=== PATIENT | female | born 1995 | race Caucasian/White ===

== ENCOUNTER 2018-06-28 18:02 | Emergency (ER) | payer BC ==
[2018-06-28 18:21] VITALS: BP 109/63
--- NOTE | 2018-06-28 18:26 | UC ---
UC General HPI - HPI Summary HPI Summary: feeling very stressed at her job--ran out of Zoloft 4 days ago and cannot get back to doctor right now---denies HI/SI - History of Current Complaint Chief Complaint: UCMedRefill Stated Complaint: MEDICINE REFILL Time Seen by Provider: 06/28/18 18:14 Hx Obtained From: Patient Hx Last Menstrual Period: irreg. - PCOS Onset/Duration: Sudden Onset, Lasting Days - 4, Still Present Timing: Constant Pain Intensity: 1 - Allergy/Home Medications Allergies/Adverse Reactions: Allergies Allergy/AdvReac Type Severity Reaction Status Date / Time No Known Allergies Allergy Verified 06/28/18 18:12 Home Medications: Home Medications Fexofenadine/Pseudoephedrine [Sofi-D 24 Hour Tablet] 1 each PO DAILY [History Confirmed 06/28/18] Sertraline* [Zoloft*] 100 mg PO DAILY 06/28/18 [History Confirmed 06/28/18] PMH/Surg Hx/FS Hx/Imm Hx Previously Healthy: No - pcos Psychological History: Depression - Surgical History Surgical History: None - Family History Known Family History: Positive: None - Social History Occupation: Employed Full-time, Student Lives: With Family Alcohol Use: Rare Substance Use Type: None Smoking Status (MU): Never Smoked Tobacco Review of Systems Constitutional: Negative Skin: Negative Eyes: Negative ENT: Negative Respiratory: Negative Cardiovascular: Negative Gastrointestinal: Negative Genitourinary: Negative Motor: Negative Neurovascular: Negative Musculoskeletal: Negative Neurological: Negative Psychological: Other - teary/stress but not homicidial or suicidal Is Patient Immunocompromised?: No All Other Systems Reviewed And Are Negative: Yes Physical Exam Triage Information Reviewed: Yes Appearance: Well-Appearing, No Pain Distress, Well-Nourished Vital Signs: Initial Vital Signs Temp 98.4 F 06/28/18 18:13 Pulse 89 06/28/18 18:13 Resp 18 06/28/18 18:13 BP 109/63 06/28/18 18:13 Pulse Ox 98 06/28/18 18:13 Vital Signs Reviewed: Yes Eye Exam: Normal Eyes: Positive: Conjunctiva Clear ENT Exam: Normal ENT: Positive: Normal ENT inspection, Hearing grossly normal. Negative: Trismus , Muffled voice, Hoarse voice Dental Exam: Normal Neck exam: Normal Neck: Positive: Supple, Nontender Respiratory Exam: Normal Respiratory: Positive: Chest non-tender, No respiratory distress, No accessory muscle use Cardiovascular Exam: Normal Cardiovascular: Positive: RRR, Pulses Normal, Brisk Capillary Refill Musculoskeletal Exam: Normal Musculoskeletal: Positive: Strength Intact, ROM Intact Neurological Exam: Normal Neurological: Positive: Alert, Muscle Tone Normal Psychological Exam: Normal Skin Exam: Normal Course/Dx - Course Course Of Treatment: refill zoloft, referals to community services. - Differential Dx - Multi-Symptom Provider Diagnoses: depression in remission Discharge - Sign-Out/Discharge Documenting (check all that apply): Patient Departure All imaging exams completed and their final reports reviewed: No Studies - Discharge Plan Condition: Stable Disposition: HOME Prescriptions: Sertraline* [Zoloft*] 150 mg PO DAILY #75 tab Sertraline* [Zoloft*] 150 mg PO DAILY 30 Days #90 tab Patient Education Materials: Depression (DC) Referrals: [facility] [Outside] [facility] [[facility]] [facility] [Outside] - Billing Disposition and Condition Condition: STABLE Disposition: Home
== END 2018-06-28 18:40 | disposition home or self-care (01) ==
LOC: UCEAST 18:02
DX: F29 Unspecified psychosis not due to a substance or known physiological condition (principal); Z79.899 Other long term (current) drug therapy
CPT/HCPCS: 99212; G0463